=== PATIENT | male | born 1960 | race Caucasian/White ===

== ENCOUNTER 2020-05-14 06:42 | Emergency (ER) | payer OTHER ==
[~2020-05-14] VITALS: Ht 180.3 cm; Wt 105.7 kg
[2020-05-14 06:56] VITALS: BP 129/91; Ht 180.3 cm; Wt 105.7 kg
== END 2020-05-14 07:26 | disposition home or self-care (01) ==
LOC: ED 06:42
DX: B02.9 Zoster without complications (principal); I10 Essential (primary) hypertension; I25.10 Atherosclerotic heart disease of native coronary artery without angina pectoris; E78.00 Pure hypercholesterolemia, unspecified; E66.9 Obesity, unspecified; Z68.32 Body mass index [BMI] 32.0-32.9, adult